=== PATIENT | male | born 1990 | race Caucasian/White ===

== ENCOUNTER 2017-06-02 21:05 | Emergency (ER) | payer OTHER ==
[2017-06-02 21:50] VITALS: BP 140/80; PULSE 95; RESP 16; TEMP 99.8
[2017-06-02] MEDS ORDERED: ACETAMINOPHEN TAB 500 MG TAB PO STA (22:06)
[2017-06-02] MEDS ORDERED: IBUPROFEN 600 MG STARTER PACK 4 TAB BTL PO STA (22:06)
[2017-06-02] MEDS ORDERED: AMOXICILLIN 500MG STARTER PACK 3 CAP BTL PO STA (22:32)
--- NOTE | 2017-06-02 22:33 | ED ---
ENT HPI - General Chief complaint: ENT Stated complaint: sore throat Time Seen by Provider: 06/02/17 21:55 Source: patient, RN notes reviewed, old records reviewed Mode of arrival: ambulatory Limitations: no limitations - History of Present Illness Initial comments: 26-year-old male presents the ED chief complaint of sore throat for the past 2 days. Patient is coming to emergency Department with a mild fever. Denies any history of sick contacts. Patient reports that the sore throat and pain seemed to be a sudden onset. He denies any other associated symptoms besides fatigue. - Related Data Previous Rx's Medication Instructions Recorded Amoxicillin 500 mg PO Q12HR #20 cap 06/02/17 Allergies Allergy/AdvReac Type Severity Reaction Status Date / Time No Known Allergies Allergy Verified 06/02/17 21:50 Review of Systems ROS Statement: Those systems with pertinent positive or pertinent negative responses have been documented in the HPI. ROS Other: All systems not noted in ROS Statement are negative. Past Medical History Past Medical History: No Reported History History of Any Multi-Drug Resistant Organisms: None Reported Past Surgical History: Appendectomy Past Psychological History: No Psychological Hx Reported Smoking Status: Current every day smoker Past Alcohol Use History: Occasional Past Drug Use History: Marijuana General Exam - General Exam Comments Initial Comments: Well-appearing 26-year-old male. No acute distress. Limitations: no limitations General appearance: alert, in no apparent distress Head exam: Present: atraumatic, normocephalic, normal inspection Eye exam: Present: normal appearance, PERRL, EOMI. Absent: scleral icterus, conjunctival injection, periorbital swelling ENT exam: Present: normal exam, mucous membranes moist. Absent: normal oropharynx (Erythematous bilateral oropharynx and tonsils. White exudates on bilateral tonsils.) Neck exam: Present: normal inspection. Absent: tenderness, meningismus, lymphadenopathy Respiratory exam: Present: normal lung sounds bilaterally. Absent: respiratory distress, wheezes, rales, rhonchi, stridor Cardiovascular Exam: Present: regular rate, normal rhythm, normal heart sounds. Absent: systolic murmur, diastolic murmur, rubs, gallop, clicks GI/Abdominal exam: Present: soft, normal bowel sounds. Absent: distended, tenderness, guarding, rebound, rigid Extremities exam: Present: normal inspection, full ROM, normal capillary refill. Absent: tenderness, pedal edema, joint swelling, calf tenderness Back exam: Present: normal inspection Neurological exam: Present: alert, oriented X3, CN II-XII intact Psychiatric exam: Present: normal affect Skin exam: Present: warm, dry, intact, normal color. Absent: rash Course Vital Signs 06/02/17 21:47 Temperature 99.8 F H Pulse Rate 95 Respiratory 16 Rate Blood Pressure 140/80 O2 Sat by Pulse 100 Oximetry Medical Decision Making - Medical Decision Making Transitional that she days of sore throat. He presents emergency Department with fever. Given Motrin and Tylenol. Significant erythema on bilateral tonsils as well as white exudates. Patient's rapid strep is positive. Patient will be started on amoxicillin. No evidence of tonsillar abscess. Patient has been advised to return if there is any worsening signs or symptoms occur including difficulty swallowing or shortness of breath. Patient agrees to treatment plan will comply. Return parameters were discussed. - Lab Data Lab Results 06/02/17 Range/Units 22:00 Group A Strep Rapid Positive A (Negative) Disposition Clinical Impression: Strep pharyngitis Disposition: HOME SELF-CARE Condition: Good Instructions: Strep Throat (ED) Additional Instructions: Patient advised to rest, increase fluids. Take Motrin and Tylenol for pain. Patient is to take antibiotics completely do not miss a dose. Return to the emergency department if any alarming signs or symptoms occur. Prescriptions: Amoxicillin 500 mg PO Q12HR #20 cap Referrals: None,Stated [Primary Care Provider] - 1-2 days Katie Yun MD [STAFF PHYSICIAN] - 1-2 days Time of Disposition: 22:30
== END 2017-06-02 22:40 | disposition home or self-care (01) ==
LOC: EC 21:05
DX: J02.0 Streptococcal pharyngitis (principal); F17.200 Nicotine dependence, unspecified, uncomplicated
CPT/HCPCS: 87430; 99283

== ENCOUNTER 2018-09-28 22:53 | Emergency (ER) | payer OTHER ==
--- NOTE | 2018-09-28 23:13 | ED ---
Abdominal Pain HPI - General Stated Complaint: Dental Pain Time Seen by Provider: 09/28/18 23:11 - History of Present Illness Initial Comments: Hardik is a 28-year-old male with a history of poor dentition who presents the emergency department today for evaluation of pain and swelling of his right lower jaw. Patient was evaluated by his dentist earlier in the week at which time he was evaluated for possible tooth extraction however he was having dental pain in the left upper jaw on chose to have his left upper molars removed at that time rather than the right lower. Patient reports that he been doing well since the tooth extraction, today his right tooth began hurting a little worse than usual, he took a nap in the afternoon when he woke he noticed his entire face was swollen. At that time he decided to come to the ER for antibiotics, he plans to follow up with his dentist on Sunday. Patient denies any additional complaints. - Related Data Previous Rx's Medication Instructions Recorded Amoxicillin 500 mg PO Q12HR #20 cap 06/02/17 Penicillin V Potassium [Pen Vee K] 500 mg PO Q6HR #28 tablet 09/28/18 Allergies Allergy/AdvReac Type Severity Reaction Status Date / Time No Known Allergies Allergy Verified 09/28/18 23:15 Review of Systems ROS Statement: Those systems with pertinent positive or pertinent negative responses have been documented in the HPI. ROS Other: All systems not noted in ROS Statement are negative. Past Medical History Past Medical History: No Reported History History of Any Multi-Drug Resistant Organisms: None Reported Past Surgical History: Appendectomy Past Psychological History: No Psychological Hx Reported Smoking Status: Current every day smoker Past Alcohol Use History: Occasional Past Drug Use History: Marijuana General Exam - General Exam Comments Initial Comments: Physical Exam GENERAL: Patient is well-developed and well-nourished. Patient is nontoxic and well- hydrated and is in no distress. HENT: Normocephalic, Atraumatic. Right lower facial swelling, poor dentition, multiple dental caries, fracture of tooth #30 with surrounding erythema, recent extraction of teeth 14 15 & 16 well-healing with no signs of infection EYES: PERRL, EOMI PULMONARY: Unlabored respirations. No audible rales rhonchi or wheezing was noted. CARDIOVASCULAR: There is a regular rate and rhythm without any murmurs gallops or rubs. ABDOMEN: Soft and nontender with normal bowel sounds. SKIN: Skin is clear with no lesions or rashes and otherwise unremarkable. : Deferred NEUROLOGIC: Patient is alert and oriented x3. Moving all extremities spontaneously MUSCULOSKELETAL: Normal extremities with adequate strength and full range of motion. No lower extremity swelling or edema. No calf tenderness. PSYCHIATRIC: Normal psychiatric evaluation. Limitations: no limitations Course Vital Signs 09/28/18 23:12 Temperature 98.2 F Pulse Rate 86 Respiratory 18 Rate Blood Pressure 124/80 O2 Sat by Pulse 100 Oximetry Medical Decision Making - Medical Decision Making The patient was seen and evaluated history is obtained from the patient Physical exam reveals a dental infection with no signs of abscess I offered the patient a dental block which he declined, he will continue to take Motrin when necessary for pain management First dose of penicillin was ordered and given in the ER Patient discharged home with a prescription for penicillin and plan to follow up with his dentist on Sunday. Return parameters were discussed and the patient was discharged home in stable condition. Disposition Clinical Impression: Dental infection Disposition: HOME SELF-CARE Condition: Good Instructions: Dental Abscess (ED), Toothache (ED) Prescriptions: Penicillin V Potassium [Pen Vee K] 500 mg PO Q6HR #28 tablet Is patient prescribed a controlled substance at d/c from ED?: No Referrals: None,Stated [Primary Care Provider] - 1-2 days
[2018-09-28 23:15] VITALS: BP 124/80; PULSE 86; RESP 18; TEMP 98.2
[2018-09-28] MEDS ORDERED: PENICILLIN VK 500MG STARTER 4 TAB BTL PO STA (23:31)
== END 2018-09-28 23:45 | disposition home or self-care (01) ==
LOC: EC 22:53
DX: K04.7 Periapical abscess without sinus (principal); K02.9 Dental caries, unspecified; F17.200 Nicotine dependence, unspecified, uncomplicated; Z90.49 Acquired absence of other specified parts of digestive tract
CPT/HCPCS: 99282

== ENCOUNTER 2021-07-27 19:13 | Emergency (ER) | payer OTHER ==
[2021-07-27 19:25] VITALS: RESP 18
[2021-07-27] MEDS ORDERED: DEXAMETHASONE SOD PHOSPHATE 10 MG/ML 1 ML VIAL IV STA (19:37)
[2021-07-27] MEDS ORDERED: FAMOTIDINE 20 MG/2 ML VIAL IV STA (19:38)
[2021-07-27] MEDS ORDERED: diphenhydrAMINE 50 MG/ML 1 ML VIAL IVP STA (19:39)
--- NOTE | 2021-07-27 19:46 | ED ---
General Adult HPI - General Chief complaint: Allergic Reaction Stated complaint: Allergic Reaction Time Seen by Provider: 07/27/21 19:20 Source: patient, RN notes reviewed, old records reviewed Mode of arrival: wheelchair Limitations: no limitations - History of Present Illness Initial comments: This is a 31-year-old male who presents emergency Department stating he's having difficulty swallowing and swelling in his throat. Patient states he was drinking some ice tea and he believes he swallowed a bead he felt a stinging sensation in the back throat and since then he's got hives all over his body which are itchy and he has also had the sensation that his throat is swelling and he is having difficulty swallowing. Patient states he doesn't believe he is having at this point time any difficulty breathing. Patient denies any previous history of ALLERGIC reaction to bees. Patient denies any anaphylactic reaction to any kind of insect. Patient denies any chest pain or palpitations. Patient states he never saw the bee last would've felt like to have him. - Related Data Previous Rx's Medication Instructions Recorded Amoxicillin 500 mg PO Q12HR #20 cap 06/02/17 Penicillin V Potassium [Pen Vee K] 500 mg PO Q6HR #28 tablet 09/28/18 Allergies Allergy/AdvReac Type Severity Reaction Status Date / Time No Known Allergies Allergy Verified 09/28/18 23:15 Review of Systems ROS Statement: Those systems with pertinent positive or pertinent negative responses have been documented in the HPI. ROS Other: All systems not noted in ROS Statement are negative. Past Medical History Past Medical History: No Reported History History of Any Multi-Drug Resistant Organisms: None Reported Past Surgical History: Appendectomy Past Psychological History: No Psychological Hx Reported Smoking Status: Current every day smoker, Vaper Past Alcohol Use History: Occasional Past Drug Use History: Marijuana General Exam - General Exam Comments Initial Comments: GENERAL: Patient is well-developed and well-nourished. Patient is nontoxic and well- hydrated and is in mild distress. ENT: Neck is soft and supple. No significant lymphadenopathy is noted. Oropharynx is clear. Moist mucous membranes. Neck has full range of motion without eliciting any pain. EYES: The sclera were anicteric and conjunctiva were pink and moist. Extraocular mov ements were intact and pupils were equal round and reactive to light. Eyelids were unremarkable. PULMONARY: Unlabored respirations. Good breath sounds bilaterally. No audible rales rhonchi or wheezing was noted. CARDIOVASCULAR: There is a regular rate and rhythm without any murmurs gallops or rubs. ABDOMEN: Soft and nontender with normal bowel sounds. SKIN: Patient has hives all over his arms and legs back and chest. NEUROLOGIC: Patient is alert and oriented x3. Cranial nerves II through XII are grossly intact. Motor and sensory are also intact. Normal speech, volume and content. Symmetrical smile. MUSCULOSKELETAL: Normal extremities with adequate strength and full range of motion. LYMPHATICS: No significant lymphadenopathy is noted PSYCHIATRIC: Normal psychiatric evaluation. Limitations: no limitations Course Vital Signs 07/27/21 07/27/21 19:22 20:19 Temperature 98.1 F Pulse Rate 77 Respiratory 18 18 Rate Blood Pressure 145/84 O2 Sat by Pulse 98 Oximetry Medical Decision Making - Medical Decision Making Patient received epinephrine subcu because of the difficulty swallowing however he never had any difficulty breathing. Patient also received Decadron 10 mg IV and a drill and Pepcid. Patient had great results with the hives going away completely but he still had pain in his throat but he was able to swallow but he said it was painful. Patient was given Toradol IV and given viscous lidocaine to see if that helped his discomfort Disposition Clinical Impression: Allergic reaction to insect sting Disposition: HOME SELF-CARE Condition: Good Instructions (If sedation given, give patient instructions): Insect Bite or Sting (ED) Additional Instructions: Patient should take Benadryl when necessary for hives. Patient's take prednisone as prescribed. Patient returns as any difficulty breathing or worsening symptoms. Is patient prescribed a controlled substance at d/c from ED?: No Referrals: None,Stated [Primary Care Provider] - 1-2 days Time of Disposition: 21:00
[2021-07-27] MEDS ORDERED: KETOROLAC 15 MG/ML 1 ML VIAL IVP STA (20:41)
[2021-07-27] MEDS ORDERED: LIDOCAINE VISCOUS 2% 15 ML CUP MUCOUS MEM ONE (20:41)
[2021-07-27] MEDS ORDERED: ACET/COD 300 MG/30 MG STARTER PACK 6 TAB BTL PO STA (21:04)
[2021-07-27 21:20] VITALS: BP 149/88; PULSE 83; TEMP 97.9
== END 2021-07-27 21:20 | disposition home or self-care (01) ==
LOC: EC 19:13
DX: T63.481A Toxic effect of venom of other arthropod, accidental (unintentional), initial encounter (principal); F17.290 Nicotine dependence, other tobacco product, uncomplicated
CPT/HCPCS: 99283; 96374; 96375; 96372; J0171; J1200; J1100; J1885

== ENCOUNTER 2024-10-26 16:34 | Emergency (ER) | payer OTHER ==
--- NOTE | 2024-10-26 17:45 | ED ---
Back Pain HPI - General Source: RN notes reviewed Mode of arrival: ambulatory Limitations: no limitations - History of Present Illness Onset/Timin -: days(s) <Navi Welch - Last Filed: 10/26/24 17:44> - General Source: RN notes reviewed <Amaya Yao - Last Filed: 10/26/24 19:10> - General Stated Complaint: Leg Numbness Time Seen by Provider: 10/26/24 16:47 - History of Present Illness Initial Comments: Quick note: This is a 34-year-old male presenting with numbness and difficulty walking x 2 days. Patient states he has a pinched nerve somewhere his neck/back that is preventing normal sensation of his lower extremities and difficulty walking. Patient denies recent trauma to back or significant pain. (Navi Welch) 34-year-old male presenting with bilateral lower leg numbness x 2 days. States he has had constant numbness in bilateral lower legs below the knee. Patient states he feels he may have pinched a nerve in his back during band practice as he has had similar symptoms before. Denies known trauma or injury to the back. Denies saddle anesthesia. Denies bowel or bladder incontinence. Denies any pain of the lower extremities. States he is able to ambulate. Denies any other health conditions. (Amaya Yao) - Related Data Previous Rx's Medication Instructions Recorded Ibuprofen [Motrin] 800 mg PO Q8H PRN #30 tab 10/26/24 Allergies Allergy/AdvReac Type Severity Reaction Status Date / Time No Known Allergies Allergy Verified 10/26/24 17:42 Review of Systems ROS Other: All systems not noted in ROS Statement are negative. <Navi Welch - Last Filed: 10/26/24 17:44> ROS Other: All systems not noted in ROS Statement are negative. <Amaya Yao - Last Filed: 10/26/24 19:10> ROS Statement: Those systems with pertinent positive or pertinent negative responses have been documented in the HPI. Past Medical History Past Medical History: No Reported History History of Any Multi-Drug Resistant Organisms: None Reported Past Surgical History: Appendectomy Past Psychological History: No Psychological Hx Reported Smoking Status: Current every day smoker, Vaper Past Alcohol Use History: Occasional Past Drug Use History: Marijuana <Navi Welch - Last Filed: 10/26/24 17:44> General Exam <Navi Welch - Last Filed: 10/26/24 17:44> General appearance: alert, in no apparent distress Head exam: Present: atraumatic, normocephalic, normal inspection GI/Abdominal exam: Present: soft, normal bowel sounds. Absent: distended, tenderness, guarding, rebound, rigid Extremities exam: Present: normal inspection, full ROM, normal capillary refill, other (Full sensation of bilateral lower extremities, DP pulses intact bilaterally). Absent: tenderness, pedal edema, joint swelling, calf tenderness Back exam: Present: normal inspection, full ROM, other (No saddle anesthesia, full strength and range of motion of bilateral hips, full sensation and DP pulses bilaterally). Absent: tenderness, CVA tenderness (R), CVA tenderness (L), rash noted Neurological exam: Present: alert, oriented X3 Psychiatric exam: Present: normal affect, normal mood Skin exam: Present: warm, dry, intact, normal color. Absent: rash <Amaya Yao - Last Filed: 10/26/24 19:10> - General Exam Comments Initial Comments: Visual Physical Exam Vital signs reviewed General: Well-appearing, nontoxic, no acute distress. Head: Normocephalic, atraumatic Eyes: PERRLA, EOMI ENT: Airway patent Chest: Nonlabored breathing Skin: No visual rash, normal skin tone Neuro: Alert and oriented 3 Musculoskeletal: No gross abnormalities (Navi Welch) Course Vital Signs 10/26/24 17:42 Temperature 98.6 F Pulse Rate 91 Respiratory 18 Rate Blood Pressure 146/92 O2 Sat by Pulse 98 Oximetry Medical Decision Making <Navi Welch - Last Filed: 10/26/24 17:44> <Amaya Yao - Last Filed: 10/26/24 19:10> - Medical Decision Making I completed the quick note portion of this chart signed NARDA Ruano (Navi Welch) Was pt. sent in by a medical professional or institution (JAN Hood, GRAVEL MACHINE OPERATOR, urgent care, hospital, or alf...) When possible be specific @ -No Did you speak to anyone other than the patient for history (EMS, parent, family, police, friend...)? What history was obtained from this source @ -No Did you review nursing and triage notes (agree or disagree)? Why? @ -I reviewed and agree with nursing and triage notes Were old charts reviewed (outside hosp., previous admission, EMS record, old EKG, old radiological studies, urgent care reports/EKG's, alf records)? Report findings @ -No old charts were reviewed Differential Diagnosis (chest pain, altered mental status, abdominal pain women, abdominal pain men, vaginal bleeding, weakness, fever, dyspnea, syncope, headache, dizziness, GI bleed, back pain, seizure, CVA, palpatations, mental health, musculoskeletal)? @ -Differential Musculoskeletal Muscular strain, contusion, ligament sprain, fracture, arthritis, septic arthritis, bursitis, cellulitis, muscle spasm, nerve compression, DVT, arterial occlusion, herpes zoster, electrolyte abnormality, tumor.... This is not meant to be in all inclusive list EKG interpreted by me (3pts min.). @ -None X-rays interpreted by me (1pt min.). @ -X-ray lumbar spine reveals no acute process CT interpreted by me (1pt min.). @ -None done U/S interpreted by me (1pt. min.). @ -None done What testing was considered but not performed or refused? (CT, X-rays, U/S, labs)? Why? @ -None What meds were considered but not given or refused? Why? @ -None Did you discuss the management of the patient with other professionals (professionals i.e. , PA, GRAVEL MACHINE OPERATOR, lab, RT, psych nurse, child welfare social worker, medical csr, teacher, electronic intelligence officer, trimming caser)? Give summary @ -No Was smoking cessation discussed for >3mins.? @ -No Was critical care preformed (if so, how long)? @ -No Were there social determinants of health that impacted care today? How? (Homelessness, low income, unemployed, alcoholism, drug addiction, transportation, low edu. Level, literacy, decrease access to med. care, retirement, rehab)? @ -No Was there de-escalation of care discussed even if they declined (Discuss DNR or withdrawal of care, Hospice)? DNR status @ -No What co-morbidities impacted this encounter? (DM, HTN, Smoking, COPD, CAD, Canc er, CVA, ARF, Chemo, Hep., AIDS, mental health diagnosis, sleep apnea, morbid obesity)? @ -None Was patient admitted / discharged? Hospital course, mention meds given and route, prescriptions, significant lab abnormalities, going to OR and other pertinent info. @ -Discharge. This is a 34-year-old male presenting with numbness of bilateral lower extremities x 2 days. Believes he may have strained his back at band practice. No red flag symptoms. Neurovascularly intact, full sensation and DP pulses on examination. Blood glucose 97, x-ray lumbar spine reveals mild multi generative disc disease, no acute process. Results discussed with patient. Discussed diagnosis of lumbar radiculopathy. Appropriate return precautions and follow-up care discussed. Supportive care discussed. Patient and family are agreeable to plan. Case was discussed with my ED attending Dr. Dumas. Undiagnosed new problem with uncertain prognosis? @ -No Drug Therapy requiring intensive monitoring for toxicity (Heparin, Nitro, Insulin, Cardizem)? @ -No Were any procedures done? @ -No Diagnosis/symptom? @ -Lumbar radiculopathy Acute, or Chronic, or Acute on Chronic? @ -Acute Uncomplicated (without systemic symptoms) or Complicated (systemic symptoms)? @ -Uncomplicated Side effects of treatment? @ -No Exacerbation, Progression, or Severe Exacerbation? @ -No Poses a threat to life or bodily function? How? (Chest pain, [place], [place], pneumonia, PE, COPD, DKA, ARF, appy, cholecystitis, CVA, Diverticulitis, Homicidal, Suicidal, threat to staff... and all critical care pts) @ -No (Amaya Yao) - Lab Data Lab Results 10/26/24 Range/Units 18:42 POC Glucose (mg/dL) 97 (70-110) mg/dL POC Glu It Desktop Support Specialist ID Tarsha Dixon Disposition <Navi Welch - Last Filed: 10/26/24 17:44> Is patient prescribed a controlled substance at d/c from ED?: No Time of Disposition: 19:07 <Amaya Yao - Last Filed: 10/26/24 19:10> Clinical Impression: Numbness and tingling of both legs below knees, Lumbar radiculopathy Disposition: HOME SELF-CARE Condition: Stable Instructions (If sedation given, give patient instructions): Lumbar Radiculopathy (ED) Additional Instructions: Take ibuprofen every 8 hours as needed. Follow-up with PCP as discussed. Please return to the Emergency Department if symptoms worsen or any other concerns. Prescriptions: Ibuprofen [Motrin] 800 mg PO Q8H PRN #30 tab PRN Reason: Pain Referrals: None,Stated [Primary Care Provider] - 1-2 days Forms: Area PCPs
[2024-10-26 17:46] VITALS: BP 146/92; PULSE 91; RESP 18; TEMP 98.6
--- NOTE | 2024-10-26 18:10 | XR ---
EXAMINATION TYPE: XR lumbar spine 2 or 3V DATE OF EXAM: 10/26/2024 6:03 PM COMPARISON: None available. CLINICAL INDICATION: Male, 34 years old with history of b/l leg numbness; H TECHNIQUE: XR lumbar spine 2 or 3V - Frontal, lateral and coned in L5-S1 lateral views of the spine. FINDINGS: 5 lumbar type vertebral bodies are present for the purposes of this examination. Lumbar ali gnment is maintained. No acute fracture or traumatic subluxation. Intervertebral disc spaces appear g rossly maintained. Mild facet arthropathy L4-L5 and L5-S1. No definite spondylolysis or evidence of s pondylolisthesis. Lumbar spine vertebral body heights are maintained. IMPRESSION: 1. No acute fracture. 2. Mild multilevel disc degeneration. [facility], , 10/26/2024 6:08 PM
[2024-10-26] MEDS: IBUPROFEN 800 MG TAB PO STA (18:35)
[2024-10-26 18:45] LABS: Glucose,Whole Blood 97 mg/dL (70-110)
== END 2024-10-26 19:37 | disposition home or self-care (01) ==
LOC: EC 16:34
DX: M51.16 Intervertebral disc disorders with radiculopathy, lumbar region (principal); R20.2 Paresthesia of skin; F17.290 Nicotine dependence, other tobacco product, uncomplicated
CPT/HCPCS: 36415; 72100; 99283